=== PATIENT | male | born 1955 | race African-American/Black ===

== ENCOUNTER 2017-08-17 18:19 | Inpatient (IN) | payer MEDICARE, MEDICAID ==
[~2017-08-17] VITALS: Ht 172.7 cm; Wt 78.2 kg
[2017-08-17] MEDS ORDERED: MORPHINE SULFATE 4 MG/ML SYR/VIAL IV ONE (19:00)
[2017-08-17] MEDS ORDERED: ONDANSETRON HCL 4 MG/2 ML VIAL IV ONE ×2 (19:00→21:45)
[2017-08-17 20:01] LABS: Basophils # (auto) 0.1 uL; Basophils % (auto) 0.6 % (0.0-2.0); Eosinophils # (auto) 0.1 uL; Eosinophils % (auto) 0.8 % (0.0-7.0); Hematocrit 40.6 % (41.0-53.0); Hemoglobin 13.4 g/dL (13.5-17.5); Lymphocytes % (auto) 16.9 % (10.0-50.0); Mean Corpuscular Hemoglobin 30.9 pg (28.0-32.0); Mean Corpuscular Volume 93.6 fL (80.0-100.0); Monocytes # (auto) 1.3 uL; Monocytes % (auto) 11.1 % (0.0-12.0); Neutrophils # (auto) 8.5 uL; Neutrophils % (auto) 70.6 % (37.0-80.0); Nucleated Red Blood Cells % 0.2 %; Platelet Count (auto) 264 10^3/uL (140-450); Red Blood Cells 4.34 10^6/uL (4.5-5.90); Red Cell Distribution Width 13.9 % (11.8-14.3)
[2017-08-17 20:11] LABS: INR 1.06 (0.9-1.15); Partial Thromboplastin Time 28.5 sec (22.64-33.71); Prothrombin Time 11.6 sec (9.37-12.3)
[2017-08-17 20:24] LABS: Albumin 3.6 g/dL (3.4-5.0); BUN/Creatinine Ratio 12.9; Bilirubin, Total 2.2 mg/dL (0.2-1.0); Calcium 8.5 mg/dL (8.5-10.1); Magnesium 2.9 mg/dL (1.6-2.6); Potassium 3.8 mmol/L (3.5-5.1); Total Protein 7.5 g/dL (6.4-8.2)
[2017-08-17] MEDS ORDERED: IOHEXOL 350 MG/ML 100ML IJ ONE (21:00)
[2017-08-17] MEDS ORDERED: HYDROmorphone HCL 2 MG/ML VL ONE (21:43)
[2017-08-17] MEDS ORDERED: HYDROmorphone HCL 2 MG/ML VL IV ONE (21:45)
[2017-08-17 22:08] LABS: Urine Bacteria NONE SEEN /hpf (None Seen); Urine Blood 1+ /uL (Negative); Urine Specific Gravity 1.009 (1.001-1.035); Urine WBC 2 /hpf (0 - 3)
[2017-08-17 22:27] LABS: Alcohol, Urine < 3.0 mg/dL (0-5); Amphetamine Screen, Urine POSITIVE (NEGATIVE); Barbiturate Scree,Urine NEGATIVE (NEGATIVE); Benzodiazephine Screen, Urine NEGATIVE (NEGATIVE); Cocaine Screen, Urine NEGATIVE (NEGATIVE); Opiate Scree,Urine NEGATIVE (NEGATIVE); Phencyclidine Screen, Urine NEGATIVE (NEGATIVE)
[2017-08-17 22:37] LABS: Cannabinoid Screen, Urine POSITIVE (NEGATIVE)
[2017-08-17] MEDS ORDERED: NITROGLYCERIN 0.4 MG SL TAB SL PRN (23:30)
[2017-08-17] MEDS ORDERED: MORPHINE SULFATE 4 MG/ML SYR/VIAL IV PRN (23:30)
[2017-08-17] MEDS ORDERED: ONDANSETRON HCL 4 MG/2 ML VIAL IV PRN (23:30)
[2017-08-17] MEDS ORDERED: HYDROcodone-ACET 5/325MG TAB PO PRN (23:30)
[2017-08-17] MEDS ORDERED: ACETAMINOPHEN 500 MG TAB PO PRN (23:30)
[2017-08-17] MEDS ORDERED: DEXTROSE (50%) 50ML SYRG IV PRN (23:45)
[2017-08-17] MEDS ORDERED: AZITHROMYCIN 500MG/ 250ML 250 ML IV ONE ×2 (23:45→23:57)
[2017-08-18] VITALS (7 sets, daily range): BP systolic 126–142; BP diastolic 60–89
[2017-08-18] MEDS ORDERED: MET50T PO (06:26)
[2017-08-18] MEDS ORDERED: LURA40TA PO (06:26)
[2017-08-18] MEDS ORDERED: TAM04C PO (06:26)
[2017-08-18] MEDS ORDERED: AMLO5TAB2 PO (06:26)
[2017-08-18] MEDS: ACCU-CHEK COMFORT CURVE STRIP VI SCH ×2 (07:00→10:54)
[2017-08-18] MEDS: InsuLIN REG 1unit/0.01ml Soln (100units/ml) SC SCH ×2 (07:00→10:54)
[2017-08-18] MEDS: MORPHINE SULFATE 4 MG/ML SYR/VIAL IV PRN ×4 (08:01→20:11)
[2017-08-18 08:18] LABS: Basophils # (auto) 0.1 uL; Basophils % (auto) 0.6 % (0.0-2.0); Eosinophils # (auto) 0.1 uL; Eosinophils % (auto) 1.3 % (0.0-7.0); Hematocrit 39.9 % (41.0-53.0); Hemoglobin 13.2 g/dL (13.5-17.5); Lymphocytes # (auto) 2.1 uL; Lymphocytes % (auto) 21.2 % (10.0-50.0); Mean Corpuscular Hgb Conc. 33.1 g/dL (32.0-36.0); Mean Corpuscular Volume 93.8 fL (80.0-100.0); Monocytes % (auto) 10.2 % (0.0-12.0); Neutrophils # (auto) 6.5 uL; Neutrophils % (auto) 66.7 % (37.0-80.0); Nucleated Red Blood Cells % 0.4 %; Platelet Count (auto) 222 10^3/uL (140-450); Red Blood Cells 4.25 10^6/uL (4.5-5.90); Red Cell Distribution Width 13.7 % (11.8-14.3); White Blood Cell 9.7 10^3/uL (4.4-10.8)
[2017-08-18 08:33] LABS: BUN/Creatinine Ratio 12.7; Calcium 8.4 mg/dL (8.5-10.1); Potassium 3.8 mmol/L (3.5-5.1)
[2017-08-18] MEDS: DULoxetine HCL 30 MG CAP PO SCH (09:22)
[2017-08-18] MEDS: METOPROLOL TARTRATE 25 MG TAB PO SCH ×2 (09:22→21:33)
[2017-08-18] MEDS: ASPirin-EC 81 mg tab PO SCH (09:22)
[2017-08-18] MEDS: AZITHROMYCIN 500MG/ 250ML 250 ML IV SCH (09:22)
[2017-08-18] MEDS: amLODIPine BESYLATE 5 MG TAB PO SCH (09:23)
[2017-08-18] MEDS: ENOXAPARIN SOD 80 MG/0.8ML SYRINGE SC SCH ×2 (09:23→21:34)
[2017-08-18] MEDS ORDERED: ALBUTEROL SULF 2.5 MG/0.5ML(0.5%) NEB SOLN NEB PRN (15:15)
[2017-08-18] MEDS ORDERED: IPRATROPIUM BROM 0.5 MG/2.5ML INH SOL NEB PRN (15:15)
[2017-08-18] MEDS ORDERED: LOPERAMIDE HCL 2 MG CAP PO PRN (18:00)
[2017-08-18] MEDS: ATORVASTATIN 20 MG TAB PO SCH (21:33)
[2017-08-18] MEDS ORDERED: InsuLIN REG 1unit/0.01ml Soln (100units/ml) SC SCH (22:00)
[2017-08-19] MEDS: MORPHINE SULFATE 4 MG/ML SYR/VIAL IV PRN ×4 (00:11→12:26)
[2017-08-19 05:00] VITALS: BP 140/85
[2017-08-19 06:26] LABS: Albumin 2.9 g/dL (3.4-5.0); Potassium 3.8 mmol/L (3.5-5.1)
[2017-08-19 06:32] LABS: BUN/Creatinine Ratio 10.9; Bilirubin, Total 0.9 mg/dL (0.2-1.0); Calcium 8.6 mg/dL (8.5-10.1); Total Protein 6.5 g/dL (6.4-8.2)
[2017-08-19 06:34] LABS: Basophils # (auto) 0 uL; Basophils % (auto) 0.4 % (0.0-2.0); Eosinophils # (auto) 0.1 uL; Eosinophils % (auto) 1.9 % (0.0-7.0); Hematocrit 40.1 % (41.0-53.0); Hemoglobin 13.4 g/dL (13.5-17.5); Lymphocytes # (auto) 1.7 uL; Lymphocytes % (auto) 21.2 % (10.0-50.0); Mean Corpuscular Hemoglobin 31.2 pg (28.0-32.0); Mean Corpuscular Hgb Conc. 33.3 g/dL (32.0-36.0); Mean Corpuscular Volume 93.6 fL (80.0-100.0); Monocytes % (auto) 12.7 % (0.0-12.0); Neutrophils % (auto) 63.8 % (37.0-80.0); Nucleated Red Blood Cells % 0.2 %; Platelet Count (auto) 231 10^3/uL (140-450); Red Blood Cells 4.28 10^6/uL (4.5-5.90); Red Cell Distribution Width 14.2 % (11.8-14.3); White Blood Cell 7.8 10^3/uL (4.4-10.8)
[2017-08-19 08:00] VITALS: BP 137/78
[2017-08-19 09:00] VITALS: BP 137/78
[2017-08-19] MEDS: METOPROLOL TARTRATE 25 MG TAB PO SCH ×2 (10:00→22:00)
[2017-08-19] MEDS: ASPirin-EC 81 mg tab PO SCH (10:00)
[2017-08-19] MEDS: amLODIPine BESYLATE 5 MG TAB PO SCH (10:00)
[2017-08-19] MEDS: LORazepam 0.5 MG TAB PO PRN (11:12)
[2017-08-19] MEDS: DULoxetine HCL 30 MG CAP PO SCH (11:12)
[2017-08-19] MEDS: AZITHROMYCIN 500MG/ 250ML 250 ML IV SCH (11:14)
[2017-08-19 13:00] VITALS: BP 125/75
[2017-08-19 17:07] VITALS: BP 138/78
[2017-08-19] MEDS ORDERED: oxyCODONE ER 10 MG TAB PO PRN (18:30)
[2017-08-19] MEDS: OXYCODONE HCL 5MG TAB PO PRN (18:42)
[2017-08-19] MEDS: ATORVASTATIN 20 MG TAB PO SCH (22:00)
[2017-08-19 22:36] VITALS: BP 129/83
[2017-08-20] VITALS (7 sets, daily range): BP systolic 135–151; BP diastolic 87–99
[2017-08-20 06:16] LABS: Albumin 2.9 g/dL (3.4-5.0); Calcium 8.9 mg/dL (8.5-10.1); Potassium 3.8 mmol/L (3.5-5.1)
[2017-08-20 06:18] LABS: BUN/Creatinine Ratio 10.8
[2017-08-20 06:29] LABS: Bilirubin, Total 1.1 mg/dL (0.2-1.0); Total Protein 6.6 g/dL (6.4-8.2)
[2017-08-20] MEDS: LORazepam 0.5 MG TAB PO PRN (06:33)
[2017-08-20] MEDS: OXYCODONE HCL 5MG TAB PO PRN (08:37)
[2017-08-20 09:15] LABS: Hepatitis B Surface Antibody Negative
[2017-08-20 09:27] LABS: Hepatitis B Surface Antigen Negative (Negative)
[2017-08-20 09:53] LABS: Hepatitis A Total Antibody Negative
[2017-08-20 09:54] LABS: Hepatitis B Core Total AB Negative
[2017-08-20] MEDS: METOPROLOL TARTRATE 25 MG TAB PO SCH (10:00)
[2017-08-20] MEDS: DULoxetine HCL 30 MG CAP PO SCH (10:01)
[2017-08-20] MEDS: AZITHROMYCIN 500MG/ 250ML 250 ML IV SCH (10:01)
[2017-08-20] MEDS: amLODIPine BESYLATE 5 MG TAB PO SCH (10:01)
[2017-08-20] MEDS: ASPirin-EC 81 mg tab PO SCH (10:01)
[2017-08-20 10:33] LABS: Hepatitis C Antibody Positive (Negative)
[2017-08-20] MEDS ORDERED: ASP81EC PO (11:14)
[2017-08-20] MEDS ORDERED: DOXY-216 PO (11:14)
[2017-08-20] MEDS ORDERED: oxyCODONE ER 20 MG TAB PO ONE (11:45)
== END 2017-08-20 16:30 | disposition home or self-care (01) | DRG 280 ==
LOC: ER 18:19 → TELE 18:20 → TELE-WESTW 23:55
PROVIDERS: ADMIT Nurse Practitioner Family; ATTEND Internal Medicine
DX: I21.4 Non-ST elevation (NSTEMI) myocardial infarction (principal); J18.9 Pneumonia, unspecified organism; E11.9 Type 2 diabetes mellitus without complications; J44.0 Chronic obstructive pulmonary disease with (acute) lower respiratory infection; F17.210 Nicotine dependence, cigarettes, uncomplicated; F31.9 Bipolar disorder, unspecified; F12.10 Cannabis abuse, uncomplicated; F15.10 Other stimulant abuse, uncomplicated; I10 Essential (primary) hypertension; M79.7 Fibromyalgia; R79.1 Abnormal coagulation profile; B19.20 Unspecified viral hepatitis C without hepatic coma; F41.9 Anxiety disorder, unspecified; E78.5 Hyperlipidemia, unspecified; Z53.29 Procedure and treatment not carried out because of patient's decision for other reasons; Z71.6 Tobacco abuse counseling; Z59.0 Homelessness; Z82.3 Family history of stroke; Z79.84 Long term (current) use of oral hypoglycemic drugs
CPT/HCPCS: 36415; 71045; 71275; 80048; 80053; 80061; 80307; 81001; 82962; 83036; 83735; 83880; 84443; 84484; 85025; 85379; 85610; 85730; 86704; 86706; 86708; 86803; 87340; 87493; 93005; 93306; 96365; 96375; 96376; 97163; J2405